=== PATIENT | male | born 2000 | race Asian ===

== ENCOUNTER 2020-02-08 03:48 | Inpatient (IN) | payer OTHER ==
[2020-02-08] MEDS ORDERED: Fentanyl 100 MCG/2 ML VIAL ONE (04:13)
[2020-02-08] MEDS ORDERED: Morphine 4 MG/ML VIAL SLOW IVP PRN ×3 (04:42→19:34)
[2020-02-08] MEDS ORDERED: Dextrose 50% Abboject 50 ML SYRINGE SLOW IVP PRN (04:42)
[2020-02-08] MEDS ORDERED: Dextrose 5% in Water 1,000 ML IV PRN (04:42)
[2020-02-08] MEDS ORDERED: Sodium Chloride 0.9% 1,000 ML IV SCH (04:45)
[2020-02-08] MEDS ORDERED: Morphine 2 MG/ML VIAL SLOW IVP PRN (04:46)
[2020-02-08 05:29] LABS: #Basophils 0.1 thou/uL (0.0-0.2); #Lymphocytes 1.3 thou/uL (1.20-3.40); #Monocytes 0.8 thou/uL (0.11-0.59); #Neutrophils 9.1 thou/uL (1.40-6.50); %Basophils 0.9 % (0.0-1.0); %Eosinophils 0.3 % (0.0-10.0); %Lymphocytes 11.1 % (28.0-48.0); %Monocytes 6.9 % (0.0-4.0); %Neutrophils 80.9 % (31.0-61.0); Hemoglobin 15.4 g/dL (14.0-18.0); Mean Corpuscular HGB CONC 32.3 g/dL (32.0-36.0); Mean Corpuscular Hemoglobin 29.5 pg (25.0-35.0); Mean Corpuscular Volume 91.3 fL (78.0-98.0); Mean Platelet Volume 7.4 fL (7.4-10.4); Platelet Count 260 thou/uL (130-400); RBC Distribution Width 11.4 % (11.5-14.5); White Blood Cell (WBC) Count 11.2 thou/uL (4.8-10.8)
[2020-02-08 05:36] LABS: INR-International Normal Ratio 1.1; PTT 24.5 sec (22.9-36.1); Prothrombin Time 14.2 sec (12.0-14.7)
--- NOTE | 2020-02-08 05:44 | HP ---
TRAUMA SURGEON: Alejandro Ayala MD CONSULTING PHYSICIANS: None. HISTORY OF PRESENT ILLNESS: The patient is a 19-year-old male, who presented to our Emergency Department from an outside facility for a pancreatic laceration. The patient reports that he hit a tennis ball on top of a roof. He subsequently climbed up scaffolding and retrieved a ball. On his way down, he fell and hit his abdomen on the top of a fence. He then subsequently fell backwards, but was able to catch himself, had a near syncopal episode from the abdominal pain. He was able to ambulate afterwards. His friend took him to an urgent care, for which. At that location, he received a CT scan of his chest, abdomen, and pelvis, it demonstrated a pancreatic laceration. He has been hemodynamically stable. Denies nausea or vomiting. Denies chest pain or shortness of breath. Denies numbness and tingling in his bilateral upper and lower extremities. REVIEW OF SYSTEMS: All additional 10-point review of systems negative except as indicated above. PAST MEDICAL HISTORY: None. PAST SURGICAL HISTORY: None. SOCIAL HISTORY: The patient denies tobacco, drug, and alcohol use. States that he drinks alcohol very occasionally. 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 MEDICATIONS: None. ALLERGIES: NO KNOWN DRUG ALLERGIES. PHYSICAL EXAMINATION: VITAL SIGNS: Temperature 98.6, pulse 91, respirations 20, oxygen saturation 98% on room air, and blood pressure 109/74. PRIMARY SURVEY: Airway intact. Adequate breath sounds bilaterally. 2+ pulses in bilateral radials, femorals, and DPs. GCS 15. Gross motor and sensation are intact. No laceration or external bleeding. He does have some bruising to his right forearm. SECONDARY SURVEY: HEAD: Normocephalic and atraumatic. No gross palpable skull deformities or tenderness. EYES: Pupils 3 to 2, equal, round, reactive to light bilaterally. ENT: No signs of trauma. C-SPINE: No step-offs or deformities. Nontender. C-collar not in place. CHEST: Nontender. No crepitus. No abrasions or ecchymosis noted. Equal chest movement. ABDOMEN: Soft and moderately tender to the epigastric and right upper quadrant. Nondistended. No peritoneal signs. PELVIS: Stable to palpation. Nontender. No abrasions or ecchymosis noted. RECTAL: Deferred. GENITOURINARY: Deferred. EXTREMITIES: No gross deformities. The patient has some bruising over his right posterior forearm. 2+ pulses in the bilateral radials, femorals, and DPs. BACK/SPINE: No step-offs or deformities or tenderness to palpation of thoracic or lumbar spine. No abrasions or ecchymosis noted. NEUROLOGIC: 5/5 strength in the bilateral central supply manager, plantar flexion, and dorsiflexion. Gross normal sensation x4 extremities. LABORATORY FINDINGS: Laboratory findings are pending. DIAGNOSTIC FINDINGS: The patient received CT evaluation by outside facility, which demonstrated negative noncontrast CT of the chest. A noncontrast CT of the abdomen was demonstrated, which was completed, which demonstrated haziness in the upper retroperitoneal surrounding the IVC suggestive of a small amount of fluid along the surface of the upper right psoas muscle. Evidence is limited without IV contrast. A repeat CT abdomen and pelvis of IV contrast were recommended for further evaluation given the history of trauma. The patient did receive a CT abdomen and pelvis with contrast. There is no official report with his packet of information. However, upon evaluation with Dr. Ayala, there is a pancreatic laceration noted. ASSESSMENT: 1. Status post fall from scaffolding onto a fence. 2. Pancreatic laceration. 3. Acute traumatic pain. PLAN: The patient will be admitted to the Trauma Service. He will go to the regular surgical nursing floor. N.P.O. Normal saline 120 an hour. IV pain medications p.r.n. We will complete blood work including CBC, CMP, lactic acid, lipase, Mag, phos, PT, INR, as well as type and screen. This patient was seen and evaluated by Dr. Ayala and myself this morning in the Emergency Department. Job ID: [id number]
[2020-02-08 05:53] LABS: Lactic Acid 1.9 mmol/L (0.5-2.2)
[2020-02-08 05:57] LABS: ALT (SGPT) 25 U/L (8-55); AST (SGOT) 23 U/L (5-34); Albumin 3.9 g/dL (3.5-5.0); Alkaline Phosphatase 42 U/L (50-130); Anion Gap 15 mmol/L (10-20); BUN (Urea Nitrogen) 11 mg/dL (8.9-20.6); Bilirubin, Total 0.5 mg/dL (0.2-1.2); Calc. Creatinine Clearance 0 mL/min (70-130); Calcium 8.3 mg/dL (7.8-10.44); Carbon Dioxide 20 mmol/L (22-29); Chloride 105 mmol/L (98-107); Estimated GFR-MDRD Greater than 90; Globulin 2.7 g/dL (2.4-3.5); Glucose 109 mg/dL (70-105); Lipase 397 U/L (8-78); Phosphorus 3.1 mg/dL (2.3-4.7); Potassium 3.8 mmol/L (3.5-5.1); Protein, Total 6.6 g/dL (6.0-8.3); Sodium 136 mmol/L (136-145)
[2020-02-08 06:57] VITALS: BMI 23.8
[2020-02-08] MEDS ORDERED: Potassium Phosphate 15 MMOL in Sodium Chloride 0.9% 250 ML 250 ML IVPB SCH (07:30)
[2020-02-08] MEDS: Famotidine/PF 20 mg/2ml Vial SLOW IVP SCH ×2 (08:29→19:57)
[2020-02-08] MEDS ORDERED: Ibuprofen 100 MG/5 ML UDCUP PO SCH (10:00)
[2020-02-08] MEDS ORDERED: traMADol HCl 50 MG TAB PO SCH (10:00)
[2020-02-08] MEDS ORDERED: traMADol HCl 50 MG TAB PO PRN (10:19)
[2020-02-08] MEDS: traMADol HCl 50 MG TAB PO PRN ×2 (11:01→17:42)
[2020-02-08] MEDS: Acetaminophen 500 MG TAB PO SCH ×3 (11:01→21:29)
--- NOTE | 2020-02-08 15:37 | PRG ---
DATE OF SERVICE: 02/08/2020 SUBJECTIVE: The patient is a 19-year-old male, who was admitted for a pancreatic laceration after falling and hitting his abdomen on the top of a fence. The patient is awake, alert, and able to answer questions appropriately this morning. He reports his pain is well controlled. Denies any questions or concerns this morning. OBJECTIVE: VITAL SIGNS: Temperature 98.1, pulse 72, respirations 16, O2 saturation 98% on room air, blood pressure 111/72. GENERAL: Young male resting comfortably in bed, no acute distress. HEENT: Normocephalic, atraumatic, extraocular movements intact. NECK: Supple with full range of motion. RESPIRATORY: Bilateral symmetric chest rise, no respiratory distress. CARDIAC: Regular rate and rhythm. NEUROLOGIC: GCS is 15. Neurovascularly intact x4. LABORATORY FINDINGS: White blood cell count 11.2, hemoglobin 15.4, hematocrit 47.5, platelets 260. Sodium 136, potassium 3.8, chloride 105, bicarb 20, BUN 11, creatinine 0.8. Lipase 397. PT 14.2, INR 1.1, APTT 24.5. DIAGNOSTIC IMAGING: Reviewed CD-ROM during morning rounds and Dr. Cueva agreed with grade 3 pancreatic laceration. ASSESSMENT: 1. Status post fall from scaffolding onto a fence. 2. Pancreatic laceration, grade 3. 3. Acute traumatic pain. PLAN: We will continue to monitor the patient on the Trauma Service. The patient has been given a clear liquid diet and p.o. medications. We will continue to monitor the patient for toleration. We will continue to provide supportive care and pain management to the patient. The patient's fluids were stopped this morning and the patient was encouraged to ambulate. The patient was seen on morning rounds by Dr. Cueva. Plan was discussed with the patient who is in agreement. Job ID: [id number]
[2020-02-08 16:29] LABS: SARS-CoV-2 MS2 Positive; SARS-CoV-2 N Gene Negative; SARS-CoV-2 S Gene Negative; SARS-CoV-2 by NAA Not Detected (NotDetected); SARS-CoV-2 orf1ab Negative
[2020-02-09] MEDS: Ondansetron PF 4 MG/2 ML Vial IVP PRN ×3 (00:24→17:49)
--- NOTE | 2020-02-09 01:52 | PRG ---
DATE OF SERVICE: 02/08/2020 SUBJECTIVE: The patient was seen during evening rounds, resting comfortably in no acute distress. Patient's respirations are even and nonlabored. The patient's nurse reports some abdominal pain earlier this evening. The patient is tolerating a clear liquid diet. OBJECTIVE: Vital signs are stable and he remains afebrile. PLAN: 1. Continue clear liquid diet and p.o. pain regimen. 2. Continue to have patient ambulate. Job ID: [id number]
[2020-02-09] MEDS: Acetaminophen 500 MG TAB PO SCH (04:21)
[2020-02-09 05:36] LABS: Band 24 % (5-11); Lymphocytes 6 % (28-48); MDiff Complete? YES; Mean Corpuscular HGB CONC 33.6 g/dL (32.0-36.0); Mean Corpuscular Hemoglobin 30.5 pg (25.0-35.0); Mean Corpuscular Volume 90.7 fL (78.0-98.0); Mean Platelet Volume 7.6 fL (7.4-10.4); Monocytes 3 % (0-4); Neutrophil 67 % (31-61); Platelet Count 236 thou/uL (130-400); Platelet Morphology Comment Appears Adequate; RBC Distribution Width 11.3 % (11.5-14.5); Red Blood Cell (RBC) Count 5.23 mill/uL (4.00-5.20); White Blood Cell (WBC) Count 10.3 thou/uL (4.8-10.8)
[2020-02-09 05:38] LABS: Calcium 8.2 mg/dL (7.8-10.44); Chloride 104 mmol/L (98-107); Potassium 5.2 mmol/L (3.5-5.1); Sodium 132 mmol/L (136-145)
[2020-02-09 05:39] LABS: Glucose 119 mg/dL (70-105)
[2020-02-09 05:40] LABS: Anion Gap 17 mmol/L (10-20); Carbon Dioxide 16 mmol/L (22-29)
[2020-02-09 05:42] LABS: Calc. Creatinine Clearance 158 mL/min (70-130); Estimated GFR-MDRD Greater than 90
[2020-02-09 05:43] LABS: BUN (Urea Nitrogen) 7 mg/dL (8.9-20.6)
[2020-02-09 05:44] LABS: Magnesium 1.9 mg/dL (1.7-2.2)
[2020-02-09 05:47] LABS: Phosphorus 2.4 mg/dL (2.3-4.7)
[2020-02-09 05:59] LABS: Lipase 2695 U/L (8-78)
[2020-02-09] MEDS: traMADol HCl 50 MG TAB PO PRN (07:27)
[2020-02-09] MEDS ORDERED: Sodium Phosphate 30 MMOL in Sodium Chloride 0.9% 250 ML 250 ML IVPB SCH (07:30)
[2020-02-09] MEDS ORDERED: Famotidine 20 MG TAB PO SCH (09:00)
[2020-02-09] MEDS: Morphine 4 MG/ML VIAL SLOW IVP PRN ×4 (10:15→21:55)
[2020-02-09] MEDS: Famotidine/PF 20 mg/2ml Vial SLOW IVP SCH ×2 (10:19→20:05)
--- NOTE | 2020-02-09 11:43 | PRG ---
DATE OF SERVICE: 02/09/2020 SUBJECTIVE: The patient was seen on morning rounds with Dr. Cueva. The patient was resting comfortably in bed, in no acute distress. He reports that he tolerated his liquid diet, but reports continued abdominal pain. He rated the pain as 8/10 and said that it improved with morphine. OBJECTIVE: VITAL SIGNS: Blood pressure 122/78, temperature 98.9, pulse 91, respirations 20, O2 saturation 95% on room air. GENERAL: Young male, resting comfortably in bed, in no acute distress. HEENT: Normocephalic and atraumatic. RESPIRATORY: Bilateral symmetric chest rise. No respiratory distress. CARDIAC: Regular rate and rhythm. ABDOMEN: Tender to palpation. No distention. NEUROLOGIC: GCS 15. Neurovascularly intact x4. LABORATORY FINDINGS: White blood cell count 10.3, hemoglobin 16, hematocrit 47.4, platelets 236. Sodium 132, potassium 5.2, chloride 104, bicarb 16, BUN 7, creatinine 0.75. Lipase 2695. IMAGING STUDIES: None. ASSESSMENT: 1. Status post fall from scaffolding onto a fence. 2. Pancreatic laceration, grade 3. 3. Acute traumatic pain. PLAN: On morning rounds, the patient was made n.p.o. and MRCP was ordered to evaluate for ductal injury. Morphine was added to the patient's pain regimen in hopes of optimizing his pain control. We will follow up imaging and reassess treatment plan. Continue supportive management and optimize pain control. The patient was seen and evaluated by Dr. Cueva. Plan was discussed with the patient who is in agreement. Job ID: [id number]
[2020-02-09] MEDS: Sodium Chloride 0.9% 1,000 ML IV SCH ×2 (11:52→22:02)
--- NOTE | 2020-02-09 14:32 | MRI ---
MRI ABDOMEN WITHOUT CONTRAST: 02/09/20 HISTORY: Pancreatic ductal injury. COMPARISON: None. FINDINGS: No pleural effusions. No significant pericardial fluid. There is a laceration of the pancreatic head/body which goes to the pancreatic duct with an intrapare nchymal hematoma. There is also an injury of the splenic vein/SMV confluence with extrinsic narrowing and flattening of the flow void which may reflect an extrinsic mass effect from the anterior parench ymal hematoma of the pancreas versus hemorrhage of the wall of the portal vein and SMV. Extensive fluid within the anterior perirenal space. No evidence for renal injury. The common bile duct is normal. The intrahepatic biliary system is norm al. No definite splenic laceration is seen. No hepatic laceration. There is a small posterior splenic cleft. IMPRESSION: 1. AAST grade 3 pancreatic injury with laceration of the pancreatic head/body confluence through the pancreatic duct with intraparenchymal hematoma. This hematoma has extrinsic mass effect with lum inal narrowing of the main portal vein as well as SMV/splenic confluence with crescentic narrowing of the flow void. Venous injury is also a possibility and close follow up CT abdomen/pelvis with contra st recommended. 2. Small posterior splenic cleft and much less likely a small splenic laceration. Code CR. Lilian Martinez was notified of the findings via telephone at 2:10 p.m. POS: [facility]
--- NOTE | 2020-02-09 17:07 | PDOC.BPN ---
- Brief Progress Note Encounter Date: 02/09/20 Transfer was initialed for this patient for a grade 3 pancreatic laceration with duct injury by Dr. Cueva this afternoon for evaluation and placement of pancreatic duct
[2020-02-10 00:12] VITALS: BP 118/77; TEMP 99.6
--- NOTE | 2020-02-10 14:13 | DIS ---
DATE OF ADMISSION: 02/08/2020 DATE OF DISCHARGE: 02/09/2020 This is Annie Simmons NP dictating a report for Dr. Cueva. DISCHARGE ATTENDING: Dr. Cueva. CONSULTS: None. PROCEDURES: None. PRIMARY DIAGNOSES: 1. Fall approximately 4 feet onto a fence, blunt abdominal trauma. 2. Pancreatic laceration, grade 3. 3. Pancreatic duct injury. 4. Acute traumatic pain. DISCHARGE MEDICATIONS: 1. Morphine 4 mg p.r.n. 2. Normal saline 100 mL an hour. HISTORY OF PRESENT ILLNESS: This is a 19-year-old male, who presented to the emergency room from an outside facility for a pancreatic laceration. The patient was hitting a tennis ball that landed on the top of the roof. The patient climbed up scaffolding to retrieve the ball and on his way down fell hitting his abdomen on the top of a fence. The patient had immediate abdominal pain causing him to have a near-syncopal episode. The patient was able to ambulate afterwards. His friends took him to an urgent care in which a CT scan demonstrated a pancreatic laceration. The patient was hemodynamically stable. The patient was transferred to [facility] for definitive care. The patient had no nausea or vomiting. HOSPITAL COURSE: The patient was evaluated on the surgical floor. The patient received morphine for pain. The patient did tolerate liquids but continued to have abdominal pain. The patient had a significant increase in his lipase, which was 2695. An MRI of his abdomen was obtained, showing a grade 3 pancreatic injury with a laceration of the pancreatic head/body confluent through the pancreatic duct with intraparenchymal hematoma. The hematoma has an extrinsic mass effect with luminal narrowing of the main portal vein as well as SMV/splenic confluence with a crescent narrowing of the flow void. Venous injury is also a possibility and close followup CT with contrast recommended. Small posterior splenic cleft, much less likely a small splenic laceration. There was concern for a ductal injury requiring a stent placement, which Gastroenterology is unable to do here at [facility]. The patient was attempted to be transferred to [facility] Trauma Center over at [facility]; after several hours, we were informed that the patient's insurance is not within network; therefore, the patient was denied acceptance. We also attempted to get the patient transferred to [facility] in which the patient was denied stating that they do not accept trauma patients. We then reached out to [facility] in [place] where the patient's father lives. Doc to doc was completed by Dr. Cueva in which he spoke to Dr. Howard. The patient was accepted. The patient was transferred via air ambulance due to long transport time and more comfortable for the patient versus being in the back of an ambulance for several hours. The patient remained n.p.o. His vitals were stable at the time of discharge. The patient's GCS was 15. The patient had minimal abdominal pain. The patient remained n.p.o. for transport for possible OR procedure once the patient arrives to the receiving facility. Continue maintenance IV fluids. Morphine for pain control. Job ID: [id number]
== END 2020-02-09 23:35 | disposition short-term general hospital (02) | DRG 440 ==
LOC: ERS 03:48 → SJJU 06:09
PROVIDERS: ADMIT Surgery; ATTEND Surgery
DX: S36.239A Laceration of unspecified part of pancreas, unspecified degree, initial encounter (principal); W17.89XA Other fall from one level to another, initial encounter; S36.229A Contusion of unspecified part of pancreas, initial encounter; Z20.828 Contact with and (suspected) exposure to other viral communicable diseases
CPT/HCPCS: 36415; 74181; 80048; 80053; 83605; 83690; 83735; 84100; 85025; 85610; 85730; 86850; 86900; 86901; 87635; 96374; G0390; J2270; J2405; J3010; J7050; S0028; U0003